=== PATIENT | male | born 1965 | race Caucasian/White ===

== ENCOUNTER 2017-01-27 07:30 | Inpatient (IN) | payer OTHER, BC ==
[~2017-01-27] VITALS: Ht 188 cm; Wt 133.2 kg
[2017-03-04] MEDS ORDERED: PANT40TA3 PO (09:09)
[2017-03-04] MEDS ORDERED: ZOFR4TAB PO (09:09)
[2017-03-04] MEDS ORDERED: PRAZ5CAP PO (09:09)
[2017-03-04] MEDS ORDERED: GABA800T PO (09:09)
[2017-03-04] MEDS ORDERED: MONT10TA4 PO (09:09)
[2017-03-04] MEDS ORDERED: BUSP30TA PO (09:09)
[2017-03-04] MEDS ORDERED: DIVA500T3 PO ×2 (09:30)
[2017-03-04] MEDS ORDERED: COLC1CAP3 PO (09:30)
[2017-03-04] MEDS ORDERED: HYDR1SOL3 PO (09:30)
[2017-03-04] MEDS ORDERED: LEVO100T5 PO (09:30)
[2017-03-04] MEDS ORDERED: SERT-129 PO (09:30)
[2017-03-05] MEDS ORDERED: METOPROLOL TARTRATE 25 MG TAB PO PRN (06:15)
[2017-03-05] MEDS ORDERED: SODIUM CHLORID 0.9% 500 ML IV PRN (06:15)
[2017-03-05] MEDS ORDERED: LACTATED RINGER'S 1000 ML IV PRN (06:15)
[2017-03-05] MEDS ORDERED: ACETAMINOPHEN 1000 MG/100 ML VIAL IV SCH (06:15)
[2017-03-05] MEDS ORDERED: APREPITANT 40 MG CAP PO SCH (06:15)
[2017-03-05] MEDS ORDERED: INSULIN HUMAN REGULAR 1,000 UNITS/10 ML VIAL SQ PRN (06:15)
[2017-03-05] MEDS ORDERED: CHLORHEXIDINE GLUCONATE 2 % 1 PACK (2 CLOTHS) TOPICAL PRN (06:15)
[2017-03-05] MEDS ORDERED: ceFAZolin 2 GM PREMIX 50 ML IV SCH (06:15)
[2017-03-05] MEDS ORDERED: POVIDONE IODINE 5% (ANTISEPSIS KIT) 4 APPLICATIONS EACH NARE PRN (06:15)
[2017-03-05] MEDS ORDERED: SCOPOLAMINE 1.5 MG PATCH T-DERMAL SCH (06:15)
[2017-03-05] MEDS ORDERED: metroNIDAZOLE 500 MG INJ 100 ML IV SCH (06:15)
[2017-03-05] MEDS ORDERED: ALLO100T PO (07:23)
[2017-03-05 07:24] VITALS: BP 150/80; PULSE 61; RESP 16; TEMP 98.7; O2SAT 97
[2017-03-05] MEDS: ONDANSETRON HCL 4 MG/2 ML VIAL IV PUSH SCH (07:37)
[2017-03-05] MEDS ORDERED: fentaNYL CITRATE 250 MCG/5 ML AMP ONE (08:17)
[2017-03-05] MEDS ORDERED: FAMOTIDINE 20 MG/2 ML VIAL ONE (08:17)
[2017-03-05] MEDS ORDERED: HYDROmorphone HCL PF 2 MG/ML VIAL ONE (08:17)
[2017-03-05] MEDS ORDERED: MIDAZOLAM HCL 2 MG/2 ML VIAL ONE (08:17)
[2017-03-05] MEDS ORDERED: ceFAZolin INJ 1,000 MG VIAL IV ONE (09:37)
[2017-03-05] MEDS ORDERED: BUPIVACAINE/EPINEPHRINE 0.25% PF 30 ML VIAL INFIL ONE (09:53)
[2017-03-05] MEDS ORDERED: NEOSTIGMINE 3 MG/3 ML SYR IV ONE (12:00)
[2017-03-05] MEDS ORDERED: METHYLENE BLUE 10 MG/ML VIAL NG ONE (12:00)
[2017-03-05] MEDS ORDERED: PROPOFOL 200 MG/20 ML AMP IV ONE (12:00)
[2017-03-05] MEDS ORDERED: LACTATED RINGER'S 1000 ML INJ 1,000 ML IV ONE (12:00)
[2017-03-05] MEDS ORDERED: diphenhydrAMINE HCL 50 MG/ML VIAL IV PRN (12:15)
[2017-03-05] MEDS ORDERED: ENALAPRILAT 1.25 MG/ML VIAL IV PUSH PRN (12:15)
[2017-03-05] MEDS ORDERED: ACETAMINOPHEN 325MG/HYDROcodone 7.5MG/15ML UDC PO PRN (12:15)
[2017-03-05] MEDS ORDERED: NALOXONE HCL 0.4 MG/ML AMP IV PRN (12:15)
[2017-03-05] MEDS ORDERED: Post-op Orders (for Pharmacy) MISC OTHER ONE (12:15)
[2017-03-05] MEDS ORDERED: SODIUM CHLORIDE 0.9% FLUSH 10 ML FLUSH IV FLUSH PRN (12:15)
[2017-03-05] MEDS ORDERED: MORPHINE SULFATE 30 MG/30 ML PCA IV SCH (12:15)
[2017-03-05] MEDS ORDERED: ONDANSETRON HCL 4 MG/2 ML VIAL IV PRN (12:15)
[2017-03-05] MEDS ORDERED: diphenhydrAMINE HCL ELIXIR 12.5 MG/5 ML CUP PO PRN (12:15)
[2017-03-05] MEDS ORDERED: MORPHINE SULFATE 30 MG/30 ML PCA ONE (12:46)
[2017-03-05] MEDS: 1/2 NS + KCL 20 MEQ INJ 1,000 ML IV SCH ×2 (13:00→22:12)
[2017-03-05] MEDS ORDERED: *morphine SULFATE 8 MG/ML PERIprocedure ONLY ONE ×2 (13:03→13:14)
[2017-03-05] MEDS ORDERED: *RESP: ALBUTEROL 2.5 MG/3 ML NEB (PRN) PERIprocedural Use ONLY NEB ONE (13:52)
[2017-03-05] MEDS: METOCLOPRAMIDE HCL 10 MG/2 ML VIAL IV PUSH SCH ×2 (13:53→19:07)
[2017-03-05] MEDS: metroNIDAZOLE 500 MG INJ 100 ML IV SCH (15:44)
[2017-03-05 16:30] VITALS: BP 145/82; PULSE 85; RESP 12; TEMP 97.6; O2SAT 96
[2017-03-05] MEDS: ENOXAPARIN SODIUM 40 MG/0.4 ML SYRINGE SQ SCH (18:05)
[2017-03-05 20:00] VITALS: BP 132/78; PULSE 68; RESP 20; TEMP 98.5; O2SAT 93
[2017-03-05] MEDS: SODIUM CHLORIDE 0.9% FLUSH 10 ML FLUSH IV FLUSH SCH (21:00)
[2017-03-05 21:27] VITALS: O2SAT 92
[2017-03-05] MEDS: RESP: ALBUTEROL 2.5 MG/3 ML NEB (SCH) INH (21:27)
[2017-03-05] MEDS: PCA - TOTAL MG MORPHINE DELIVERED PER SHIFT SCH (22:00)
[2017-03-05 22:09] VITALS: RESP 18
[2017-03-06] VITALS (9 sets, daily range): BP systolic 131–154; BP diastolic 74–82; PULSE 65–77; RESP 18–20; TEMP 96.4–98.5; O2SAT 93–95
[2017-03-06] MEDS: METOCLOPRAMIDE HCL 10 MG/2 ML VIAL IV PUSH SCH ×2 (00:20→06:21)
[2017-03-06] MEDS: metroNIDAZOLE 500 MG INJ 100 ML IV SCH ×2 (00:20→09:47)
[2017-03-06] MEDS: RESP: ALBUTEROL 2.5 MG/3 ML NEB (SCH) INH ×7 (00:37→23:52)
[2017-03-06] MEDS: 1/2 NS + KCL 20 MEQ INJ 1,000 ML IV SCH ×5 (01:35→21:28)
[2017-03-06 05:34] LABS: BASOPHIL % 0.2 % (0.0-2.0); EOSINOPHIL % 0.2 % (0.0-4.0); HEMATOCRIT 42.1 % (39.0-51.0); HEMO FLAGS DIFF FINAL; LYMPH % 22.2 % (9.0-44.0); LYMPHOCYTE # 1.6 TH/MM3 (1.0-4.8); MEAN CELL VOLUME 87.8 FL (80.0-100.0); MEAN CORPUSCULAR HEMOGLOBIN 29.5 PG (27.0-34.0); MEAN CORPUSCULAR HGB CONC 33.7 % (32.0-36.0); MONO % 9.4 % (0.0-8.0); PLATELET COUNT 155 TH/MM3 (150-450); RED CELL DISTRIBUTION WIDTH 14.7 % (11.6-17.2); WHITE BLOOD COUNT 7.3 TH/MM3 (4.0-11.0)
[2017-03-06 05:46] LABS: BICARBONATE 27.4 MEQ/L (21.0-32.0)
[2017-03-06] MEDS: PCA - TOTAL MG MORPHINE DELIVERED PER SHIFT SCH ×2 (06:00→09:55)
[2017-03-06] MEDS: SODIUM CHLORIDE 0.9% FLUSH 10 ML FLUSH IV FLUSH SCH ×2 (09:00→21:00)
[2017-03-06] MEDS: PANTOPRAZOLE SOD 40 MG DELAYED RELEASE TAB PO SCH (09:47)
[2017-03-06] MEDS: ACETAMINOPHEN 325MG/HYDROcodone 7.5MG/15ML UDC PO PRN ×3 (09:55→22:41)
[2017-03-06] MEDS: busPIRone HCL 10 MG TAB PO SCH ×2 (11:44→21:00)
[2017-03-06] MEDS: GABAPENTIN 400 MG CAP PO SCH ×3 (11:44→21:21)
[2017-03-06] MEDS ORDERED: METOCLOPRAMIDE HCL 10 MG/2 ML VIAL IV PUSH PRN (12:15)
--- NOTE | 2017-03-06 12:15 | HHI.PR ---
Subjective Subjective Notes 52yo male POD#1 RNY Laying in bed. Complains of some post-op tenderness. Denies nausea. Not passing flatus Objective Vitals/I&O Vital Signs Date Time Temp Pulse Resp B/P Pulse Ox O2 Delivery O2 Flow Rate FiO2 03/06/17 09:55 16 03/06/17 08:00 97.9 74 148/80 94 03/05/17 21:27 21 03/05/17 15:40 Nasal Cannula 3 Labs Laboratory Tests Test 03/06/17 04:27 White Blood Count 7.3 Red Blood Count 4.80 Hemoglobin 14.2 Hematocrit 42.1 Mean Corpuscular Volume 87.8 Mean Corpuscular Hemoglobin 29.5 Mean Corpuscular Hemoglobin 33.7 Concent Red Cell Distribution Width 14.7 Platelet Count 155 Mean Platelet Volume 9.2 Neutrophils (%) (Auto) 68.0 Lymphocytes (%) (Auto) 22.2 Monocytes (%) (Auto) 9.4 Eosinophils (%) (Auto) 0.2 Basophils (%) (Auto) 0.2 Neutrophils # (Auto) 5.0 Lymphocytes # (Auto) 1.6 Monocytes # (Auto) 0.7 Eosinophils # (Auto) 0.0 Basophils # (Auto) 0.0 CBC Comment DIFF FINAL Differential Comment Sodium Level 140 Potassium Level 4.0 Chloride Level 103 Carbon Dioxide Level 27.4 Anion Gap 10 Blood Urea Nitrogen 23 Creatinine 1.03 Estimat Glomerular Filtration 76 Rate Random Glucose 93 Calcium Level 8.3 Magnesium Level 2.0 Cardiovascular: Regular Lungs: Clear Abdomen: Post-op tenderness Extremities: Perfused Wound Wound : Wound Location: Abdomen Appearance: Clean & Dry A/P Assessment and Plan D/C SERVICE ASSOCIATE, transition to oral pain meds Continue to increase fluids as tolerated Continue with frequent ambulation Continue to use IS, deep breath and cough The exam, history, and the medical decision-making described in the above note were completed with the assistance of the mid-level provider. I reviewed and agree with the findings presented. I attest that I had a [id number] encounter with the patient on the same day, and personally performed and documented my assessment and findings in the medical record. Discharge Planning D/C home most likely tomorrow John Mcdaniels March 06, 2017 12:14 Lavelle Izaguirre MD March 07, 2017 09:05
[2017-03-06] MEDS: ONDANSETRON HCL 4 MG/2 ML VIAL IV PUSH SCH (14:21)
[2017-03-06] MEDS: LEVOTHYROXINE SODIUM 100 MCG TAB PO SCH (14:21)
[2017-03-06] MEDS: ENOXAPARIN SODIUM 40 MG/0.4 ML SYRINGE SQ SCH (17:30)
[2017-03-06] MEDS ORDERED: PRAZOSIN HCL 5 MG CAP PO SCH (21:00)
[2017-03-06] MEDS ORDERED: SERTRALINE HCL 100 MG TAB PO SCH (21:00)
[2017-03-06] MEDS ORDERED: DIVALPROEX DR 500 MG TABEC PO SCH (21:00)
[2017-03-06] MEDS: COLCHICINE 0.6 MG TAB PO SCH (21:00)
[2017-03-07] VITALS: BP 159/77; PULSE 89; RESP 20; TEMP 99.2; O2SAT 94
[2017-03-07] MEDS: RESP: ALBUTEROL 2.5 MG/3 ML NEB (SCH) INH ×3 (03:21→13:02)
[2017-03-07 04:00] VITALS: BP 137/81; PULSE 64; RESP 18; TEMP 97.7; O2SAT 95
[2017-03-07] MEDS: 1/2 NS + KCL 20 MEQ INJ 1,000 ML IV SCH ×3 (04:15→12:15)
[2017-03-07] MEDS: ACETAMINOPHEN 325MG/HYDROcodone 7.5MG/15ML UDC PO PRN ×3 (04:48→17:27)
[2017-03-07] MEDS: LEVOTHYROXINE SODIUM 100 MCG TAB PO SCH (04:50)
[2017-03-07 08:00] VITALS: BP 140/73; PULSE 61; RESP 13; TEMP 98.3; O2SAT 97
[2017-03-07] MEDS: SODIUM CHLORIDE 0.9% FLUSH 10 ML FLUSH IV FLUSH SCH (08:18)
[2017-03-07 08:24] VITALS: O2SAT 98
[2017-03-07] MEDS: busPIRone HCL 10 MG TAB PO SCH (09:00)
[2017-03-07] MEDS: GABAPENTIN 400 MG CAP PO SCH ×2 (09:00→13:00)
[2017-03-07] MEDS ORDERED: ALLOPURINOL 100 MG TAB PO SCH (09:00)
[2017-03-07] MEDS ORDERED: DIVALPROEX DR 500 MG TABEC PO SCH (09:00)
[2017-03-07] MEDS ORDERED: SUCRALFATE 1 GM/10 ML CUP PO ONE (09:15)
--- NOTE | 2017-03-07 09:15 | HHI.PR ---
Subjective Subjective Notes Sitting up in bed. In no acute distress. Tolerating fluids Objective Vitals/I&O Vital Signs Date Time Temp Pulse Resp B/P Pulse Ox O2 Delivery O2 Flow Rate FiO2 03/07/17 08:24 98 21 03/07/17 08:00 98.3 61 13 140/73 03/05/17 15:40 Nasal Cannula 3 Cardiovascular: Regular Lungs: Clear Abdomen: Post-op tenderness Extremities: Perfused Wound Wound : Wound Location: Abdomen Appearance: Clean & Dry A/P Assessment and Plan Continue to increase fluids as tolerated Continue with frequent ambulation Continue to use IS, deep breath and cough The exam, history, and the medical decision-making described in the above note were completed with the assistance of the mid-level provider. I reviewed and agree with the findings presented. I attest that I had a [id number] encounter with the patient on the same day, and personally performed and documented my assessment and findings in the medical record. Discharge Planning D/C home later this evening John Mcdaniels March 07, 2017 09:15 Lavelle Izaguirre MD March 19, 2017 09:40
[2017-03-07] MEDS ORDERED: DIVA500T PO ×2 (09:17)
[2017-03-07] MEDS: PANTOPRAZOLE SOD 40 MG DELAYED RELEASE TAB PO SCH (09:35)
[2017-03-07] MEDS: COLCHICINE 0.6 MG TAB PO SCH (09:35)
[2017-03-07 12:00] VITALS: BP 130/69; PULSE 65; RESP 16; TEMP 97.5; O2SAT 94
[2017-03-07 16:00] VITALS: BP 137/74; PULSE 66; RESP 14; TEMP 98.7; O2SAT 97
[2017-03-07] MEDS: ENOXAPARIN SODIUM 40 MG/0.4 ML SYRINGE SQ SCH (17:27)
--- NOTE | 2017-03-07 18:41 | MP ---
cc: CHRIS IZAGUIRRE DATE OF SURGERY: 03/05/2017. PREOPERATIVE DIAGNOSIS: Severe obesity with a BMI of 38 complicated by severe gastroesophageal reflux and fatty liver. POSTOPERATIVE DIAGNOSIS: Severe obesity with a BMI of 38 complicated by severe gastroesophageal reflux and fatty liver. OPERATIVE PROCEDURE PERFORMED: Laparoscopic Jose David-en-Y gastric bypass 100 cm Jose David limb antegastric antecolic. SURGEON: Chris Izaguirre MD. OVERHEAD LINE WORKER: Glenn Thao MD. NOTE: Dr. Thao was necessary for assistance during the entire procedure due to the complexity of the operation. Dr. Thao was necessary for manipulation and exposure during the operation as well as the anastomosis. The assistant purchasing manager provided by the hospital was utilized at the back table during the entire procedure. ANESTHESIA: General endotracheal anesthesia. ESTIMATED BLOOD LOSS: Scant. FINDINGS: Fatty liver. SPECIMENS: None. COMPLICATIONS: None. DESCRIPTION OF THE PROCEDURE IN DETAIL: The patient was brought to the operating room and placed on the operating table in supine position, bilateral sequential inflation device placed on lower extremities, general anesthesia instituted, antibiotics initiated. The abdomen was prepped and draped sterilely. A poin 18-cm distal to the xiphoid in the midline anesthetized with 0.25% Marcaine with epinephrine. The skin incision was made, a 5-mm OptiView port placed under direct vision and pneumoperitoneum was created. Under direct vision a 5-mm left upper quadrant, 12-mm left upper quadrant, 12-mm right upper quadrant and 5-mm right upper quadrant ports were placed. Prior to placement of all ports, the skin and peritoneum were anesthetized with 0.25% Marcaine with epinephrine. The patient's omentum was lifted into the upper abdomen. It was split down the middle to create a path for the Jose David limb. The ligament of Treitz was identified, a point 40 cm distal identified. The small bowel was divided in this region using an [place] Flex stapler vascular load reinforced with SeamGuard. The distal segment was brought up for a distance of 100 cm, enterotomy created in this region, enterotomy in the biliopancreatic limb and a [id number] stapled jejunojejunostomy created in the usual manner. The mesenteric defect at the jejunojejunostomy was closed with 2-0 Surgidac suture in a running manner. The patient was placed in reverse Trendelenburg position with the left side up. The Renate-Flex retractor was placed. The left lobe of the liver was retracted. The angle of His was taken down bluntly, a point 5 cm distal to the GE junction along the lesser curve identified, the lesser sac entered using blunt dissection. The stomach was partitioned horizontally using an [place]-Flex stapler blue load, an additional firing taken directed towards the angle of His to completely divide the stomach. A gastrotomy created in the new stomach, enterotomy in the Jose David limb and gastrojejunostomy created, stomal opening of 2 cm. An 18-Icelandic OG tube was placed across the anastomosis, the defect then closed in two layers of running 2-0 Vicryl. Prior to placement of the second layer, methylene blue instilled through the OG tube. There was no evidence of extravasation. Evicel was then placed over the gastrojejunostomy, jejunojejunostomy and all staple lines. The operative field inspected and hemostasis was present. The CO2 was released, all ports were removed. All skin incisions were closed with 4-0 Monocryl. The abdominal wall was cleaned and a sterile dressing placed. The patient was awakened and taken to the recovery room. MD BOO Márquez/KELI /12:30 PM /6:35 PM
== END 2017-03-07 17:39 | disposition home or self-care (01) | DRG 621 ==
LOC: HSDI 03-05 05:21 → N07A 03-05 15:57
PROVIDERS: ADMIT Surgery; ATTEND Surgery
PROC: 0D164ZA Bypass Stomach to Jejunum, Percutaneous Endoscopic Approach (ICD-10-PCS; principal; 2017-03-05 09:11)
DX: E66.01 Morbid (severe) obesity due to excess calories (principal); K76.0 Fatty (change of) liver, not elsewhere classified; Z68.38 Body mass index [BMI] 38.0-38.9, adult; K21.9 Gastro-esophageal reflux disease without esophagitis
CPT/HCPCS: 80048; 83735; 85025; 94150; 94640; 94664; J0131; J0690; J1170; J1650; J2250; J2270; J2405; J2710; J2765; J3010; J7120; J7613; J8501